=== PATIENT | male | born 1995 ===

== ENCOUNTER 2022-03-21 17:19 | Emergency (ER) | payer BC ==
[~2022-03-21] VITALS: Ht 172.7 cm; Wt 68.0 kg
[2022-03-21 17:40] VITALS: BP 121/74
[2022-03-21] MEDS ORDERED: FLUORESCEIN SODIUM OPHTH 1 EA STRIP OP ONE (18:30)
[2022-03-21] MEDS ORDERED: TETRACAINE HCL 0.5% OPHTALMIC 15 ML BOTTLE OP ONE (18:30)
[2022-03-21] MEDS ORDERED: FLUORESCEIN SODIUM OPHTH 1 EA STRIP ONE (18:42)
--- NOTE | 2022-03-21 21:01 | NUR ---
CALLED OFFICE OF DR PRESLEY, LEFT VOICEMAIL FOR CONSULT
--- NOTE | 2022-03-21 21:39 | NUR ---
CALLED BACK DR. PRESLEY AND SERVICES UNAVAILABLE AT [facility] TIME.
== END 2022-03-21 22:48 | disposition home or self-care (01) ==
LOC: ER 17:30
DX: H57.11 Ocular pain, right eye (principal); Z60.2 Problems related to living alone